=== PATIENT | male | born 1990 | race Caucasian/White ===

== ENCOUNTER 2021-05-16 22:38 | Emergency (ER) | payer OTHER ==
[2021-05-16] MEDS ORDERED: ZYRTEC10 MG PO (23:51)
[2021-05-16] MEDS ORDERED: PREDNISONE 20MG20 MG PO (23:51)
== END 2021-05-17 00:02 | disposition home or self-care (01) ==
LOC: FER 22:38
DX: T78.40XA Allergy, unspecified, initial encounter (principal); Z88.0 Allergy status to penicillin
CPT/HCPCS: 99284; J2930